=== PATIENT | male | born 1995 | race Caucasian/White ===

== ENCOUNTER 2016-09-06 09:15 | Outpatient (CLI) | END 2016-09-06 09:16 | disposition home or self-care (01) | LOC: AMBL 09:15 | PROVIDERS: ATTEND Emergency Medicine | DX: R56.9 Unspecified convulsions (principal); M54.2 Cervicalgia; R11.0 Nausea; R00.0 Tachycardia, unspecified; W19.XXXA Unspecified fall, initial encounter; Y92.002 Bathroom of unspecified non-institutional (private) residence as the place of occurrence of the external cause ==